=== PATIENT | male | born 1960 | race Caucasian/White ===

== ENCOUNTER 2017-12-18 13:22 | Day surgery (SDC) | payer OTHER ==
[~2017-12-18 13:22] MED LIST: PROPOFOL 200 MG INJ
[2017-12-18] MEDS ORDERED: LIDOCAINE 2% (SDV) 5 ML INJ (15:00)
[2017-12-18] MEDS ORDERED: PROPOFOL 60 ML (15:00)
== END 2017-12-18 16:26 | disposition home or self-care (01) ==
LOC: GIL 13:22
DX: Z12.11 Encounter for screening for malignant neoplasm of colon (principal); D12.5 Benign neoplasm of sigmoid colon; E03.9 Hypothyroidism, unspecified
CPT/HCPCS: 45380; 88305